=== PATIENT | male | born 1985 | race African-American/Black ===

== ENCOUNTER 2016-02-25 15:31 | Emergency (ER) | payer OTHER ==
[~2016-02-25] VITALS: Ht 182.9 cm; Wt 89.5 kg
[~2016-02-25 15:31] MED LIST: FLEXERIL10 MG PO; NAPROSYN500 MG PO; NOHOMEMEDS
[2016-02-25] MEDS ORDERED: FLEXERIL10 MG PO (18:37)
[2016-02-25] MEDS ORDERED: PERCOCET 5/31 TABLET PO (18:37)
[2016-02-25 18:49] VITALS: BP 123/78
== END 2016-02-25 18:50 | disposition home or self-care (01) ==
LOC: EME 15:31 → RME 15:31
DX: S39.012A Strain of muscle, fascia and tendon of lower back, initial encounter (principal); X58.XXXA Exposure to other specified factors, initial encounter; Y93.61 Activity, american tackle football
CPT/HCPCS: 72100; 99281; 99284

== ENCOUNTER 2016-07-23 14:21 | Emergency (ER) | payer OTHER ==
[~2016-07-23] VITALS: Ht 182.9 cm; Wt 91.3 kg
[~2016-07-23 14:21] MED LIST changes: +PERCOCET 5/31 TABLET PO
[2016-07-23 14:32] VITALS: BP 135/83
[2016-07-23] MEDS ORDERED: NAPROSYN500 MG PO (15:57)
[2016-07-23] MEDS ORDERED: FLEXERIL10 MG PO (15:57)
== END 2016-07-23 17:10 | disposition home or self-care (01) ==
LOC: EME 14:21
PROC: 2W39X1Z Immobilization of Left Upper Extremity using Splint (ICD-10-PCS; principal; 2016-07-23)
DX: S63.502A Unspecified sprain of left wrist, initial encounter (principal); S56.302A Unspecified injury of extensor or abductor muscles, fascia and tendons of left thumb at forearm level, initial encounter; S56 Injury of muscle, fascia and tendon at forearm level; W03.XXXA Other fall on same level due to collision with another person, initial encounter; Y93.61 Activity, american tackle football; F17.200 Nicotine dependence, unspecified, uncomplicated
CPT/HCPCS: 73110; 73130; 99281; 99283

== ENCOUNTER 2016-07-26 13:46 | Emergency (ER) | payer OTHER ==
[~2016-07-26] VITALS: Ht 182.9 cm; Wt 91.8 kg
[2016-07-26] MEDS ORDERED: NORCO 5/3251 TABLET PO (16:51)
[2016-07-26 17:33] VITALS: BP 132/79
== END 2016-07-26 17:44 | disposition home or self-care (01) ==
LOC: EME 13:46
DX: S50.12XA Contusion of left forearm, initial encounter (principal); S63.502A Unspecified sprain of left wrist, initial encounter; Y93.61 Activity, american tackle football
CPT/HCPCS: 73090; 73110; 99281; 99284

== ENCOUNTER 2016-08-08 14:16 | Emergency (ER) | payer OTHER ==
[~2016-08-08] VITALS: Ht 182.9 cm; Wt 88.5 kg
[~2016-08-08 14:16] MED LIST changes: +NORCO 5/3251 TABLET PO
[2016-08-08 14:57] VITALS: BP 124/80
== END 2016-08-08 14:58 | disposition home or self-care (01) ==
LOC: EME 14:16 → EXP 14:16
DX: S63.502A Unspecified sprain of left wrist, initial encounter (principal)
CPT/HCPCS: 99281; 99283

== ENCOUNTER 2017-01-26 13:40 | Emergency (ER) | payer OTHER ==
[~2017-01-26] VITALS: Ht 182.9 cm; Wt 93.1 kg
[2017-01-26] MEDS ORDERED: MOTRIN600 MG PO (16:38)
[2017-01-26 17:31] VITALS: BP 148/84
== END 2017-01-26 17:32 | disposition home or self-care (01) ==
LOC: EME 13:40
DX: S83.92XA Sprain of unspecified site of left knee, initial encounter (principal); X50.1XXA Overexertion from prolonged static or awkward postures, initial encounter; Y93.61 Activity, american tackle football; F17.200 Nicotine dependence, unspecified, uncomplicated
CPT/HCPCS: 73564

== ENCOUNTER 2017-10-09 17:32 | Emergency (ER) | payer OTHER ==
[~2017-10-09] VITALS: Ht 185.4 cm; Wt 85.5 kg
[~2017-10-09 17:32] MED LIST changes: +MOTRIN600 MG PO
[2017-10-09] MEDS ORDERED: VALIUM5 MG PO (19:53)
[2017-10-09] MEDS ORDERED: PERCOCET 5/31 TABLET PO (19:53)
[2017-10-09] MEDS ORDERED: MEDROL DOSEPAK4 MG PO (19:53)
[2017-10-09 20:00] VITALS: BP 145/84
== END 2017-10-09 20:01 | disposition home or self-care (01) ==
LOC: EME 17:32
DX: S16.1XXA Strain of muscle, fascia and tendon at neck level, initial encounter (principal); X50.1XXA Overexertion from prolonged static or awkward postures, initial encounter; Y93.83 Activity, rough housing and horseplay
CPT/HCPCS: 99281; 99284; J1885